=== PATIENT | female | born 1995 | race Caucasian/White ===

== ENCOUNTER 2020-07-02 07:18 | Emergency (ER) | payer SELFPAY ==
--- NOTE | 2020-07-02 07:25 | PC.NURSE ---
PT CRYING UNCONTROLLABLY. REFUSES TO COOPERATE. STATES GIVE ME A FUCKING A MINUTE. REFUSES TO GET OUT OF WHEELCHAIR.
[2020-07-02 07:33] VITALS: BP 127/92; PULSE 118; RESP 20; TEMP 36.8; O2SAT 99
== END 2020-07-02 08:00 ==
LOC: ANHED 09:37
DX: Z04.89 Encounter for examination and observation for other specified reasons (principal)
CPT/HCPCS: 99199